=== PATIENT | female | born 1995 | race African-American/Black ===

== ENCOUNTER 2024-05-25 20:07 | Emergency (ER) | payer OTHER, SELFPAY ==
[2024-05-25 20:11] VITALS: BP 161/108
--- NOTE | 2024-05-25 21:26 | ED.GENMED ---
History of Present Illness
General
Chief Complaint: Musculo-Skeletal Complaint
Time Seen by Provider: 05/25/24 21:26
History of Present Illness
History of Present Illness:
HPI: Patient came in due to left upper extremity concerns without injury. She reports having an x-ray at urgent care which was reportedly unremarkable. The pain is primarily from the elbow down to her fingers. She cannot extend the fingers
without rather significant pain. She also has pain at the wrist. The pain started rather suddenly around 3 AM today.
EXAM:
GENERAL: Well appearing in mild distress related to discomfort at the left upper extremity, elevated BMI noted
HEENT: Moist oral mucosa
NEUROLOGIC: Excellent strength all extremities, no coordination deficits
PSYCHIATRIC: Appropriate mental status, normal insight and judgement
EXTREMITIES: Increased adiposity noted to the upper extremities, from the left elbow down to the fingers, there is increased edema and she is unable to extend the fingers due to pain, good radial pulse with good perfusion on the left upper extremity
SKIN: No rash, no lesions
TIME OF INITIAL ENCOUNTER: 9:30 PM
NUMBER AND COMPLEXITY OF PROBLEMS ADDRESSED AT THE ENCOUNTER
� Chronic conditions affecting care: High blood pressure, asthma
� Acute Exacerbation and/or Progression of Chronic Illness: This is an acute problem
� Differential Diagnosis includes: Tenosynovitis, DVT, infection
AMOUNT AND/OR COMPLEXITY OF DATA TO BE REVIEWED AND ANALYZED
� I performed an independent evaluation of and my interpretation is:
EKG:
CT:
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
Laboratory Studies: White count normal, hemoglobin normal, MCV slightly low, sed rate and C-reactive protein slightly elevated
Other: Ultrasound imaging shows no DVT
� Review of other/old records: I reviewed records, the patient was seen here earlier this year with COVID
� Clinical information was obtained by an independent historian: I spoke to family member at bedside
� Prescriptions/Medications Considered but not given:
� Further testing considered but not performed:
RISK OF COMPLICATIONS AND/OR MORBIDITY OR MORTALITY OF PATIENT MANAGEMENT
� Social determinants of health affecting care: Lives at home
� Discussion with other providers:
� Escalation of care including admission/observation vs risk of discharge considered: The patient has rather debilitating distal left upper extremity swelling and pain however she has good perfusion with good radial pulse. Will
also check for DVT however she has no identifiable risk factor. On reassessment at 11:45 PM, she did report improvement after Toradol was given. As she does have rather debilitating symptoms, will start steroids for a brief course. I also
recommend that she follows up with orthopedics.
Past History
Past History
ED Past Medical History: Asthma
ED Past Surgical History: , Gynecological and Other (Oral surgery)
Social History
Tobacco: Non-smoker
Alcohol: Occasional
Drug: None
Personal: Partner
Living: with family
Employment: Employed (Pediatric office)
Family History
Family History: Other (Noncontributory)
Phy Exam
Physical Exam
Physical Exam:
See HPI
Course
Orders/Labs/Results
Orders:
Orders
05/25/24 21:32
US Periph Venous UPPER Ext LT Urgent
Comment:
Reason For Exam: unexplained swelling
05/25/24 21:34
Ketorolac [Toradol] 15 mg IV NOW STA
05/25/24 21:40
Basic Metabolic Panel Urgent
CRP [C-Reactive Protein] Urgent
Complete Blood Count/With Diff Urgent
ESR [Erythrocyte Sed Rate] Urgent
05/25/24 23:40
Splints/Slings/Crut- Treatment ONCE
Location: Left
Type of Splint: [place] Wrist
Abnormal Lab Results
05/25/24
21:40
RBC 5.63 H 10^6/uL
(4.20-5.40)
MCV 67.5 L fL
(81.0-99.0)
MCH 21.8 L pg
(27.0-31.0)
MCHC 32.4 L g/dL
(33.0-37.0)
RDW 16.8 H %
(11.5-14.5)
ESR 28 H mm/hour
(0-20)
Glucose 107 H mg/dl
(70-99)
C-Reactive Protein 20.50 H mg/L
(0.0-10.00)
05/25/24 21:40
05/25/24 21:40
Vital Signs
Initial and Last Documented VS:
Initial Vital Signs
Temp Pulse Resp BP Pulse Ox
98.3 F 97 18 161/108 100
05/25/24 20:11 05/25/24 20:11 05/25/24 20:11 05/25/24 20:11 05/25/24 20:11
Last Documented Vital Signs
Temp Pulse Resp BP Pulse Ox
98.3 F 70 18 119/71 98
05/25/24 20:11 05/25/24 22:30 05/25/24 22:30 05/25/24 22:30 05/25/24 22:30
*Critical Care Note
Total Time (30-74mins, 75-104mins- exclusive of procedures): Not Applicable
ED Attending Note
-
Portions of this chart may have been created with voice recognition software.� Occasional wrong word or��sound alike� substitutions may have occurred due to the inherent limitations of voice recognition software.
Discharge Plan
Departure
Patient Disposition: Home (Routine Discharge)
Date of Disposition: 05/25/24
Time of Disposition: 23:44
Patient with high blood pressure during this ER visit?: Yes
Discharge Problem:
Tenosynovitis
Instructions: BLOOD PRESSURE
Prescriptions:
New
prednisone 50 mg tablet
50 mg PO DAILY Qty: 5 0RF
No Action
famotidine 20 MG tablet
20 mg PO BID Qty: 28 0RF
Rx Instructions:
Take 20 mg twice a day for 14 days
ascorbic acid (vitamin C) [Vitamin C] 500 MG tablet
1,000 mg PO BID Qty: 56 0RF
Rx Instructions:
Take 1,000 mg twice a day for 14 days
aspirin 81 MG tablet,chewable
81 mg PO DAILY Qty: 14 0RF
Rx Instructions:
Take 81 mg daily for 14 days
zinc sulfate 220 MG capsule
220 mg PO DAILY Qty: 14 0RF
Rx Instructions:
Take 220 mg daily for 14 days
cholecalciferol (vitamin D3) 1,000 UNITS tablet
2,000 units PO DAILY Qty: 28 0RF
Rx Instructions:
Take 2,000 units daily for 14 days
melatonin 5 MG tablet
5 mg PO HS Qty: 14 0RF
Rx Instructions:
Take 5 mg daily at bedtime for 14 days
dexamethasone [Decadron] 6 MG tablet
6 mg PO DAILY Qty: 5 0RF
ondansetron HCl 4 mg tablet
4 mg PO Q8H PRN (Reason: nausea and vomiting) Qty: 10 0RF
ibuprofen 600 mg tablet
600 mg PO Q8H PRN (Reason: Pain) 14 Days Qty: 30 0RF
Referrals:
Cyndie Bejarano MD [Family Provider] -
Vinod Coulter MD [Active] - Next open appointment
Stand Alone Forms: Return to Work
Activity Restrictions/Additional Instructions:
The cause of your symptoms is unclear. It may be related to a tenosynovitis at the left wrist. Your white blood cell count is normal. Your sed rate and CRP are just slightly elevated. Ultrasound shows no DVT. I did review the x-ray that you had
earlier which appears unremarkable. However I would like you to follow-up with orthopedics such as Dr. Coulter.
Interventions
Interventions:
*Risk Screen - Suicide Last Done: 05/25/24 21:20
*General Assessment Last Done: 05/25/24 21:20
*Neglect/Abuse Screening Last Done: 05/25/24 21:20
ED-Musculoskeletal Assessment Last Done: 05/25/24 21:20
Discharge Date and Time
Print Language: KIS[place]HILI
[2024-05-25] MEDS: TORADOL 15 MG IV (21:46)
[2024-05-25 21:49] LABS: % Basophils 0.5 % (0-2); % Immature Granulocytes 0.1 % (0-0.5); % Lymphocytes 32.4 % (20.5-51.1); % Monocytes 5.9 % (1.7-9.3); % Neutrophils 56.1 % (42.2-75.2); Absolute Basophils 0.1 10^3/uL (0-0.2); Absolute Eosinophils 0.5 10^3/uL (0-0.7); Absolute Lymphocytes 3.3 10^3/uL (1.2-3.4); Absolute Monocytes 0.6 10^3/uL (0.1-0.6); Absolute Neutrophils 5.7 10^3/uL (1.4-6.5); Hemoglobin 12.3 g/dL (12.0-16.0); Mean Corp Hgb Conc. 32.4 g/dL (33.0-37.0); Mean Corpuscular Hgb 21.8 pg (27.0-31.0); Mean Corpuscular Volume 67.5 fL (81.0-99.0); Nucleated Red Blood Cells % 0 %; Platelet Count 284 10^3/uL (130-400); Red Blood Cell Count 5.63 10^6/uL (4.20-5.40); Red Cell Dist. Width 16.8 % (11.5-14.5); White Blood Cell Count 10.1 10^3/uL (4.8-10.8)
[2024-05-25 21:53] LABS: Erythrocyte Sed Rate 28 mm/hour (0-20)
[2024-05-25 22:05] LABS: Blood Urea Nitrogen 10 mg/dl (7-17); Calcium 9.5 mg/dl (8.4-10.2); Carbon Dioxide 23 mmol/L (22-30); Chloride 104 mmol/L (98-107); Glucose 107 mg/dl (70-99); Potassium 4.1 mmol/L (3.5-5.1); Sodium 141 mmol/L (135-145); eGFR > 60.00
[2024-05-25 22:30] VITALS: BP 119/71
[2024-05-25 23:55] VITALS: BP 120/83
== END 2024-05-25 23:55 | disposition home or self-care (01) ==
LOC: EMR 20:07
PROVIDERS: EMERGENCY PHYSICIAN Emergency Medicine; FAMILY PHYSICIAN Internal Medicine
DX: M65.9 Synovitis and tenosynovitis, unspecified (principal); I10 Essential (primary) hypertension; J45.909 Unspecified asthma, uncomplicated
CPT/HCPCS: 99284; 96374; 80048; 85025; 85652; 86140; 93971

== ENCOUNTER 2024-09-09 11:32 | Emergency (ER) | payer OTHER, SELFPAY ==
[2024-09-09 11:39] VITALS: BP 104/85
[2024-09-09 11:58] VITALS: BMI 53.9
[2024-09-09 12:30] LABS: COVID-19 Antigen Positive (Negative)
--- NOTE | 2024-09-09 12:37 | ED.GENMED ---
History of Present Illness
General
Chief Complaint: Cold/Flu/URI Symptoms
Source: patient
Exam Limitations: none
Time Seen by Provider: 09/09/24 12:04
Nursing documentation reviewed up to this point in time: agreed with
History of Present Illness
History of Present Illness:
28-year-old female past medical history of high blood pressure, asthma presenting to the emergency department today with concerns of headache has been somewhat diffuse and no mild seems worse in the morning improves during the day over the past 2
weeks or so also over the past 4 days has had sore throat nasal congestion cough. She denies any neck stiffness numbness weakness nausea vomiting.
Past History
Past History
ED Past Medical History: Asthma
ED Past Surgical History: , Gynecological and Other (Oral surgery)
Social History
Tobacco: Non-smoker
Alcohol: Occasional
Drug: None
Personal: Partner
Living: with family
Employment: Employed (Pediatric office)
Family History
Family History: Other (Noncontributory)
Review of Systems
Review of Systems
Allergies reviewed?: Yes
All Other Systems: ROS reviewed and negative except as documented in HPI and ROS
Phy Exam
Physical Exam
Physical Exam:
GENERAL: Alert , in no apparent distress
EYE: pupils equal and reactive
NECK: Supple, no significant adenopathy.
ENT: o/p clr, mmm.
CARDIAC: Regular rate and rhythm .
LUNGS: Clear breath sounds bilaterally, no acute respiratory distress, no wheezes/rales/rhonchi
ABDOMEN: Soft, without focal tenderness, no r/g, no cvat
NEUROLOGICAL: Alert and oriented, no focal neuro deficits moving all extremities in no distress
SKIN: Warm and dry, skin intact.
MUSCULOSKELETAL: No edema, well perfused.
PSYCH: Normal and appropriate interaction.
Course
Orders/Labs/Results
Orders:
Orders
09/09/24 11:50
COVID-19 Antigen Urgent
Source: Nasal Swab
Influenza A+B Rapid Molecular Urgent
ROSA MARIA Source: Nasal Swab
Specimen Description:
Rapid Strep Group A Urgent
ROSA MARIA Source: Throat/Pharynx
Specimen Description:
Date Specimen was Collected: 09/09/24
Time Specimen was Collected: 11:47
09/09/24 12:30
Dexamethasone Sod Phosphate [Decadron] 10 mg IV NOW STA
Diphenhydramine [Benadryl] 12.5 mg IV NOW STA
Ketorolac [Toradol] 15 mg IV NOW STA
Metoclopramide [Reglan] 10 mg IV NOW STA
Abnormal Lab Results
09/09/24
11:50
SARS-CoV-2 Antigen Positive A
(Negative)
Vital Signs
Initial and Last Documented VS:
Initial Vital Signs
Temp Pulse Resp BP Pulse Ox
97.9 F 64 20 104/85 100
09/09/24 11:39 09/09/24 11:39 09/09/24 11:39 09/09/24 11:39 09/09/24 11:39
Last Documented Vital Signs
Temp Pulse Resp BP Pulse Ox
97.9 F 64 20 104/85 100
09/09/24 11:39 09/09/24 11:39 09/09/24 11:39 09/09/24 11:39 09/09/24 11:39
MDM/Problems Addressed
MDM/Problems Addressed:
28-year-old female presenting to the emergency department today with concerns of upper respiratory symptoms over the past few days. Also has had some ongoing headache over the past 2 weeks or so. On arrival vital signs are normal patient
well-appearing no neurologic deficits. Patient was positive for COVID. Patient given medications for headache with significant improvement of symptoms. Otherwise at this point no red flag symptoms of headache symptoms explained by COVID no signs
of complication stable for outpatient management return precautions given.
*Critical Care Note
Total Time (30-74mins, 75-104mins- exclusive of procedures): Not Applicable
ED Attending Note
-
Portions of this chart may have been created with voice recognition software.� Occasional wrong word or��sound alike� substitutions may have occurred due to the inherent limitations of voice recognition software.
Discharge Plan
Departure
Patient Disposition: Home (Routine Discharge)
Date of Disposition: 09/09/24
Time of Disposition: 13:57
Patient with high blood pressure during this ER visit?: No
Condition: Good
Covid-19: Not Applicable
Discharge Problem:
COVID-19, Headache
Instructions: Headaches in adults
Prescriptions:
New
dexamethasone 4 mg tablet
10 mg PO ONCE Qty: 3 0RF
No Action
famotidine 20 MG tablet
20 mg PO BID Qty: 28 0RF
Rx Instructions:
Take 20 mg twice a day for 14 days
ascorbic acid (vitamin C) [Vitamin C] 500 MG tablet
1,000 mg PO BID Qty: 56 0RF
Rx Instructions:
Take 1,000 mg twice a day for 14 days
aspirin 81 MG tablet,chewable
81 mg PO DAILY Qty: 14 0RF
Rx Instructions:
Take 81 mg daily for 14 days
zinc sulfate 220 MG capsule
220 mg PO DAILY Qty: 14 0RF
Rx Instructions:
Take 220 mg daily for 14 days
cholecalciferol (vitamin D3) 1,000 UNITS tablet
2,000 units PO DAILY Qty: 28 0RF
Rx Instructions:
Take 2,000 units daily for 14 days
melatonin 5 MG tablet
5 mg PO HS Qty: 14 0RF
Rx Instructions:
Take 5 mg daily at bedtime for 14 days
dexamethasone [Decadron] 6 MG tablet
6 mg PO DAILY Qty: 5 0RF
ondansetron HCl 4 mg tablet
4 mg PO Q8H PRN (Reason: nausea and vomiting) Qty: 10 0RF
ibuprofen 600 mg tablet
600 mg PO Q8H PRN (Reason: Pain) 14 Days Qty: 30 0RF
prednisone 50 mg tablet
50 mg PO DAILY Qty: 5 0RF
Referrals:
Cyndie Bejarano MD [Family Provider] -
Gilberto Godoy MD [Active] - Call in 1-3 days for appt
Activity Restrictions/Additional Instructions:
You came to the emergency department today with concerns of headache and additional upper respiratory symptoms. Your positive for COVID. With your ongoing headache please follow closely with your primary care doctor as well as neurology if
symptoms are ongoing. Return for any worsening, new or concerning symptoms.
Interventions
Interventions:
*Risk Screen - Suicide Last Done: 09/09/24 11:39
*General Assessment Last Done: 09/09/24 11:39
*Neglect/Abuse Screening Last Done: 09/09/24 11:39
Discharge Date and Time
Print Language: NEPALI
[2024-09-09] MEDS: REGLAN 10 MG IV (12:40)
[2024-09-09] MEDS: BENADRYL 12.5 MG IV (12:40)
[2024-09-09] MEDS: TORADOL 15 MG IV (12:40)
[2024-09-09] MEDS: DECADRON 10 MG IV (12:40)
[2024-09-09 14:35] VITALS: BP 141/89
== END 2024-09-09 14:36 | disposition home or self-care (01) ==
LOC: EMR 11:32
PROVIDERS: EMERGENCY PHYSICIAN Emergency Medicine; FAMILY PHYSICIAN Internal Medicine
DX: U07.1 COVID-19 (principal); R51.9 Headache, unspecified; J45.909 Unspecified asthma, uncomplicated
CPT/HCPCS: 99282; 96374; 96375; 87070; 87502; 87811; 87880

== ENCOUNTER 2025-07-21 13:48 | Emergency (ER) | payer OTHER, SELFPAY ==
[2025-07-21 13:51] VITALS: BP 130/86
[2025-07-21 14:24] LABS: Hematocrit 33.3 % (37.0-47.0); Hemoglobin 10.8 g/dL (12.0-16.0); Mean Corp Hgb Conc. 32.4 g/dL (33.0-37.0); Mean Corpuscular Volume 68.4 fL (81.0-99.0); Nucleated Red Blood Cells % 0 %; Platelet Count 312 10^3/uL (130-400); Red Cell Dist. Width 16.9 % (11.5-14.5)
[2025-07-21 14:49] LABS: ALT (SGPT) 20 U/L (0-35); AST (SGOT) 17 U/L (14-36); Albumin 4.0 g/dl (3.5-5.0); Alkaline Phosphatase 75 U/L (38-126); Blood Urea Nitrogen 7 mg/dl (7-17); Calcium 9.4 mg/dl (8.4-10.2); Carbon Dioxide 23 mmol/L (22-30); Chloride 104 mmol/L (98-107); Glucose 74 mg/dl (70-99); Lipase 122 U/L (23-300); Potassium 4.2 mmol/L (3.5-5.1); Sodium 134 mmol/L (135-145); Total Protein 7.3 g/dl (6.3-8.2); eGFR > 60.00
--- NOTE | 2025-07-21 15:51 | ED.GENMED ---
History of Present Illness
<SHARRON Lane - Last Filed: 07/22/25 15:35>
General
Chief Complaint: Abdominal Symptoms
Source: patient
Exam Limitations: none
Time Seen by Provider: 07/21/25 15:40
Nursing documentation reviewed up to this point in time: agreed with
History of Present Illness
History of Present Illness:
29 yr old female is 24 weeks currently undergoing treatments for Hodgkin's lymphoma. This was diagnosed in May. She completed 2 treatments/1 round of chemo. She has been treated at [place]. Today she presents for pain to the right
lateral rib worse with deep breath.
She does feel mildly short of breath. She also has had vomiting that is not necessarily new but is persistent and she does feel mildly dizzy with this. She denies any cramping or vaginal bleeding.
Past History
<SHARRON Lane - Last Filed: 07/22/25 15:35>
Past History
ED Past Medical History: Asthma
ED Past Surgical History: , Gynecological and Other (Oral surgery)
Social History
Tobacco: Non-smoker
Alcohol: Occasional
Drug: None
Personal: Partner
Living: with family
Employment: Employed (Pediatric office)
Family History
Family History: Other (Noncontributory)
Phy Exam
<SHARRON Lane - Last Filed: 07/22/25 15:35>
General Physical Exam
General Presentation: no apparent distress
General age: appears stated age
General Skin: warm and dry
General Habitus: normal
General Mental: alert
General Hydration: appears well hydrated
Cardiovascular Exam
Cardiovascular Exam: regular rate/rhythm, no murmur and normal peripheral pulses
Pulmonary Exam
Pulmonary Exam: lungs clear and no respiratory distress
Neurological Exam
Neurological Exam: alert and oriented x3
Musculoskeletal Exam
Musculoskeletal Exam: full ROM
Skin Exam
Skin Exam: normal color and warm/dry
Psychiatric Exam
Psychiatric Exam: normal mood/affect
Course
<SHARRON Lane - Last Filed: 07/22/25 15:35>
Orders/Labs/Results
Orders:
Orders
07/21/25 14:12
Complete Blood Count/With Diff Urgent
Comprehensive Metabolic Panel Urgent
Lipase Urgent
07/21/25 15:53
IV Insert/Care/Rem.- Treatment PRN
0.9% Sodium Chloride 1000 ml [Nss] 1,000 ml IV BOLUS
Ondansetron Injectable [Zofran] 4 mg IV NOW STA
07/21/25 15:54
Cardiac Monitoring- Treatment ONCE
07/21/25 16:21
0.9% Sodium Chloride 1000 ml [Nss] 1,000 ml IV BOLUS
Ondansetron Injectable [Zofran] 4 mg IV NOW STA
07/21/25 16:34
CT Chest PE Study Urgent
Comment:
Reason For Exam: 24 wks SOB current lymphoma
07/21/25 20:09
Electrocardiogram (*1) Urgent
Reason for Study: Chest Pain
EKG- Treatment ONCE
Abnormal Lab Results
07/21/25
14:12
Hgb 10.8 L g/dL
(12.0-16.0)
Hct 33.3 L %
(37.0-47.0)
MCV 68.4 L fL
(81.0-99.0)
MCH 22.2 L pg
(27.0-31.0)
MCHC 32.4 L g/dL
(33.0-37.0)
RDW 16.9 H %
(11.5-14.5)
Abs Immat Gran (auto) 0.1 H 10^3/uL
(0-0.05)
Immature Gran % 0.7 H %
(0-0.5)
Sodium 134 L mmol/L
(135-145)
Creatinine 0.4 L mg/dL
(0.6-1.0)
Total Bilirubin 0.1 L mg/dl
(0.2-1.3)
07/21/25 14:12
07/21/25 14:12
Vital Signs
Initial and Last Documented VS:
Initial Vital Signs
Temp Pulse Resp BP Pulse Ox
98.4 F 84 18 130/86 100
07/21/25 13:51 07/21/25 13:51 07/21/25 13:51 07/21/25 13:51 07/21/25 13:51
Last Documented Vital Signs
Temp Pulse Resp BP Pulse Ox
98.4 F 92 20 126/83 98
07/21/25 13:51 07/21/25 20:02 07/21/25 20:02 07/21/25 20:02 07/21/25 20:02
Chamber Magistrate consulted with Physician
Chamber Magistrate consulted with physician?: Yes
Name of Physician Consulted: Zoltan
<Yenny Cooley, DO - Last Filed: 07/21/25 20:10>
Orders/Labs/Results
Orders:
Orders
07/21/25 14:12
Complete Blood Count/With Diff Urgent
Comprehensive Metabolic Panel Urgent
Lipase Urgent
07/21/25 15:53
IV Insert/Care/Rem.- Treatment PRN
0.9% Sodium Chloride 1000 ml [Nss] 1,000 ml IV BOLUS
Ondansetron Injectable [Zofran] 4 mg IV NOW STA
07/21/25 15:54
Cardiac Monitoring- Treatment ONCE
07/21/25 16:21
0.9% Sodium Chloride 1000 ml [Nss] 1,000 ml IV BOLUS
Ondansetron Injectable [Zofran] 4 mg IV NOW STA
07/21/25 16:34
CT Chest PE Study Urgent
Comment:
Reason For Exam: 24 wks SOB current lymphoma
07/21/25 20:09
Electrocardiogram (*1) Urgent
Reason for Study: Chest Pain
EKG- Treatment ONCE
Abnormal Lab Results
07/21/25
14:12
Hgb 10.8 L g/dL
(12.0-16.0)
Hct 33.3 L %
(37.0-47.0)
MCV 68.4 L fL
(81.0-99.0)
MCH 22.2 L pg
(27.0-31.0)
MCHC 32.4 L g/dL
(33.0-37.0)
RDW 16.9 H %
(11.5-14.5)
Abs Immat Gran (auto) 0.1 H 10^3/uL
(0-0.05)
Immature Gran % 0.7 H %
(0-0.5)
Sodium 134 L mmol/L
(135-145)
Creatinine 0.4 L mg/dL
(0.6-1.0)
Total Bilirubin 0.1 L mg/dl
(0.2-1.3)
07/21/25 14:12
07/21/25 14:12
Vital Signs
Initial and Last Documented VS:
Initial Vital Signs
Temp Pulse Resp BP Pulse Ox
98.4 F 84 18 130/86 100
07/21/25 13:51 07/21/25 13:51 07/21/25 13:51 07/21/25 13:51 07/21/25 13:51
Last Documented Vital Signs
Temp Pulse Resp BP Pulse Ox
98.4 F 92 20 126/83 98
07/21/25 13:51 07/21/25 20:02 07/21/25 20:02 07/21/25 20:02 07/21/25 20:02
<SHARRON Lane - Last Filed: 07/22/25 15:35>
MDM/Problems Addressed
Differential Diagnosis Includes:
Not limited to PE muscular pain, dehydration, electrolyte abnormality
MDM/Problems Addressed:
As documented patient is a 29-year-old female approximate 24 weeks with lymphoma currently undergoing treatments/chemo at [place]. She presents with complaints of right rib pain and pain with deep breath mild shortness of breath. She some
has been vomiting during her treatment and feels dehydrated. Patient in no acute distress here in the ER nontachycardic nonhypoxic lungs are clear .she denies any fever she is afebrile she has a normal white count. She denies any cramping or
bleeding. Will order CT to rule out PE will hydrate and give fluids and Zofran. Case discussed with ED physician.
[id number] Case signed out to DR Cooley
<SHARRON Lane - Last Filed: 07/22/25 15:35>
*Pulse Oximetry
SaO2: 100
Oxygen Mode of Delivery: Room air
Patient hypoxic: no
*Critical Care Note
Total Time (30-74mins, 75-104mins- exclusive of procedures): Not Applicable
ED Attending Note
<SHARRON Lane - Last Filed: 07/22/25 15:35>
-
Portions of this chart may have been created with voice recognition software.� Occasional wrong word or��sound alike� substitutions may have occurred due to the inherent limitations of voice recognition software.
<Yenny Cooley DO - Last Filed: 07/21/25 20:10>
ED Attending Note
Patient seen and examined by attending physician: Yes
I performed the substantive portion of visit, reviewed & personally made and approve the management plan that is documented in note by myself or YVES.: Yes
I performed a history and physical exam of patient and discussed management with resident, I reviewed resident's note and agree with documented findings and plan of care.: Yes
ED Attending Note:
29-year-old female, at 25 weeks gestation, with complex medical history including Hodgkin's lymphoma currently on chemotherapy presenting to the emergency department for right-sided chest pain. Patient reports that symptoms started yesterday,
pain worse with deep inspiration. Patient has been following at [place] for her oncologic care, had chemotherapy last Saturday. She reports known mediastinal masses. Denies history of PE. Denies any issues with the baby at this time. Denies any
present abdominal pain or vaginal bleeding. She was sent in by her doctor at [place].
Vital signs on arrival are normal. On exam, patient resting comfortably, no acute distress. Unremarkable cardiac and pulmonary exam. Primary concern at this time would be a pulmonary embolism. Patient has pain with deep inspiration. Patient
with risk factors including and malignancy. For this reason plan for laboratory analysis and CT imaging.
20:00 -CT negative for acute process. No evidence of PE. At this time feel stable for discharge. Patient otherwise remains hemodynamically stable. Advise close outpatient follow-up with her oncologist. Return precautions discussed and patient
verbalized understanding.
Discharge Plan
Departure
Patient Disposition: Home (Routine Discharge)
Date of Disposition: 07/21/25
Time of Disposition: 20:11
Patient with high blood pressure during this ER visit?: No
Condition: Good
Discharge Problem:
Right-sided chest pain
Instructions: Costochondritis, Chest pain (DC)
Prescriptions:
No Action
famotidine 20 MG tablet
20 mg PO BID Qty: 28 0RF
Rx Instructions:
Take 20 mg twice a day for 14 days
ascorbic acid (vitamin C) [Vitamin C] 500 MG tablet
1,000 mg PO BID Qty: 56 0RF
Rx Instructions:
Take 1,000 mg twice a day for 14 days
aspirin 81 MG tablet,chewable
81 mg PO DAILY Qty: 14 0RF
Rx Instructions:
Take 81 mg daily for 14 days
zinc sulfate 220 MG capsule
220 mg PO DAILY Qty: 14 0RF
Rx Instructions:
Take 220 mg daily for 14 days
cholecalciferol (vitamin D3) 1,000 UNITS tablet
2,000 units PO DAILY Qty: 28 0RF
Rx Instructions:
Take 2,000 units daily for 14 days
melatonin 5 MG tablet
5 mg PO HS Qty: 14 0RF
Rx Instructions:
Take 5 mg daily at bedtime for 14 days
dexamethasone [Decadron] 6 MG tablet
6 mg PO DAILY Qty: 5 0RF
ondansetron HCl 4 mg tablet
4 mg PO Q8H PRN (Reason: nausea and vomiting) Qty: 10 0RF
ibuprofen 600 mg tablet
600 mg PO Q8H PRN (Reason: Pain) 14 Days Qty: 30 0RF
prednisone 50 mg tablet
50 mg PO DAILY Qty: 5 0RF
dexamethasone 4 mg tablet
10 mg PO ONCE Qty: 3 0RF
Referrals:
Ca Valverde MD [Family Provider, Physical Medicine and Rehab]
Stand Alone Forms: Return to Work
Activity Restrictions/Additional Instructions:
You were seen in the emergency department for chest wall pain
You were found to have reassuring laboratory analysis and CT imaging of your chest. Recommend follow-up with your oncologist
Please follow-up closely with your primary care physician.
Return to the emergency department for any worsening of your symptoms, or any development of chest pain, difficulty breathing, abdominal pain with persistent vomiting and inability to tolerate food or liquid by mouth (concern for dehydration),
weakness, headache or confusion, fever greater than 100.4, or any additional symptoms that are concerning to you.
Thank you for choosing [facility].
Interventions
Interventions:
*Risk Screen - Suicide Last Done: 07/21/25 13:51
*General Assessment Last Done: 07/21/25 16:00
*Neglect/Abuse Screening Last Done: 07/21/25 16:00
*ED- Fall Risk Assessment Last Done: 07/21/25 16:00
*ED COVID-19 Vaccine History Last Done: 07/21/25 20:37
*ED Influenza Vaccine History Last Done: 07/21/25 20:37
*Nursing Disposition Last Done: 07/21/25 20:38
SC-Zwbdjl-Dgrejuwsut Assessment Last Done: 07/21/25 16:00
Discharge Date and Time
Discharge Date/Time: 07/21/25 20:38
Print Language: FRENCH
[2025-07-21] MEDS: NSS 1000 IV (17:38)
[2025-07-21] MEDS: ZOFRAN 4 MG IV (17:39)
[2025-07-21 18:00] VITALS: BP 115/73
[2025-07-21 20:02] VITALS: BP 126/83
== END 2025-07-21 20:38 | disposition home or self-care (01) ==
LOC: EMR 13:48
PROVIDERS: Student in an Organized Health Care Education/Training Program; EMERGENCY PHYSICIAN Student in an Organized Health Care Education/Training Program; FAMILY PHYSICIAN Internal Medicine Hematology
DX: O99.891 Other specified diseases and conditions complicating pregnancy (principal); R07.89 Other chest pain; O99.282 Endocrine, nutritional and metabolic diseases complicating pregnancy, second trimester; C81.90 Hodgkin lymphoma, unspecified, unspecified site; O99.512 Diseases of the respiratory system complicating pregnancy, second trimester; J45.909 Unspecified asthma, uncomplicated; O21.2 Late vomiting of pregnancy; Z79.60 Long term (current) use of unspecified immunomodulators and immunosuppressants; Z3A.24 24 weeks gestation of pregnancy
CPT/HCPCS: 96374; 96361; 99284; 71275; 80053; 83690; 85025; 93005; Q9967